=== PATIENT | male | born 1995 | race Caucasian/White ===

== ENCOUNTER 2021-09-16 17:18 | Emergency (ER) | payer BC ==
[2021-09-16] MEDS ORDERED: Ketorolac 60 MG/2 ML SDV IM ONE (17:40)
[2021-09-16] MEDS ORDERED: Diphtheria,Pertussis(Acell),Tetanus Vaccine 0.5 ML Syringe IM ONE (17:42)
[2021-09-16 18:44] LABS: CORONAVIRUS COVID-19 NAA POSITIVE (NEGATIVE); INFLUENZA A NAA NEGATIVE (NEGATIVE); INFLUENZA B NAA NEGATIVE (NEGATIVE)
== END 2021-09-16 18:59 | disposition home or self-care (01) ==
LOC: MW.ED 17:18
DX: U07.1 COVID-19 (principal); Z88.0 Allergy status to penicillin; Z23 Encounter for immunization
CPT/HCPCS: 0240U; 90471; 90715; 96372; 99284; J1885